=== PATIENT | male | born 1980 | race Caucasian/White ===

== ENCOUNTER → 2016-09-15 | Outpatient (CLI) | payer OTHER ==
[2016-09-15 20:21] LABS: ALBUMIN 3.8 GM/DL (3.2-5.2); ANION GAP 10 MEQ/L (8-16); BLOOD UREA NITROGEN 19 MG/DL (7-18); CALCIUM LEVEL 8.9 MG/DL (8.5-10.1); CARBON DIOXIDE LEVEL 26 MEQ/L (21-32); CHLORIDE LEVEL 108 MEQ/L (98-107); CREATININE FOR GFR 0.86 MG/DL (0.70-1.30); GLOMERULAR FILTRATION RATE > 60.0 (>60); GLUCOSE, FASTING 93 MG/DL (70-105); PHOSPHORUS LEVEL 3.3 MG/DL (2.5-4.9); POTASSIUM SERUM 4.2 MEQ/L (3.5-5.1); SODIUM LEVEL 144 MEQ/L (136-145); URIC ACID 7.1 MG/DL (3.5-7.2)
== END ==
LOC: M WUC 18:18
PROVIDERS: ATTEND Physician Assistant
DX: M10.00 Idiopathic gout, unspecified site (principal)

== ENCOUNTER 2019-06-02 02:44 | Emergency (ER) | payer OTHER ==
[~2019-06-02] VITALS: Ht 188 cm; Wt 147.7 kg
[2019-06-02 03:09] LABS: BASO # 0.1 10^3/uL (0.0-0.2); BASO % 0.7 % (0.0-1.0); EOS # 0.3 10^3/uL (0.0-0.5); EOS % 2.7 % (0.0-3.0); HEMATOCRIT 47.6 % (42.0-52.0); HEMOGLOBIN 15.6 g/dl (13.5-17.5); LYMPH # 3.5 10^3/uL (1.5-5.0); LYMPH % 33.7 % (24.0-44.0); MEAN CORPUSCULAR HEMOGLOBIN 28.3 pg (27.0-33.0); MEAN CORPUSCULAR HGB CONC 32.8 g/dl (32.0-36.5); MEAN CORPUSCULAR VOLUME 86.2 fl (80.0-96.0); MONO # 0.9 10^3/uL (0.0-0.8); MONO % 8.5 % (0.0-5.0); NEUTROPHILS # 5.7 10^3/uL (1.5-8.5); NEUTROPHILS % 54.1 % (36.0-66.0); PLATELET COUNT, AUTOMATED 292 10^3/uL (150-450); RED BLOOD COUNT 5.52 10^6/uL (4.30-6.10); WHITE BLOOD COUNT 10.4 10^3/uL (4.0-10.0)
[2019-06-02 03:37] LABS: PROTHROMBIN TIME 12.9 SECONDS (11.8-14.0)
[2019-06-02 03:40] LABS: ALBUMIN 4.1 GM/DL (3.2-5.2); ALT/SGPT 58 U/L (12-78); BILIRUBIN,DIRECT 0.1 MG/DL (0.0-0.2); BILIRUBIN,TOTAL 0.3 MG/DL (0.2-1.0); BLOOD UREA NITROGEN 17 MG/DL (7-18); CALCIUM LEVEL 8.9 MG/DL (8.5-10.1); CARBON DIOXIDE LEVEL 28 MEQ/L (21-32); CHLORIDE LEVEL 106 MEQ/L (98-107); CK-MB VALUE MASS 1.3 NG/ML (<3.6); CPK CREATINE PHOSPHOKINASE 138 U/L (39-308); GLOMERULAR FILTRATION RATE > 60.0 (>60); GLUCOSE, FASTING 102 MG/DL (70-100); LIPASE 74 U/L (73-393); MB/CK RELATIVE INDEX 0.94 (< OR =4); POTASSIUM SERUM 3.9 MEQ/L (3.5-5.1); SODIUM LEVEL 140 MEQ/L (136-145); TROPONIN I < 0.02 NG/ML (< 0.10)
[2019-06-02] MEDS ORDERED: NAPR-837 PO (04:11)
[2019-06-02 04:15] VITALS: BP 145/83
[2019-06-02] MEDS ORDERED: NAPROXEN 250 MG TAB PO ONE (04:15)
--- NOTE | 2019-06-02 06:30 | REP ---
Clinical: Chest pain . Comparison: None . Findings: The mediastinum and cardiac silhouette are stable and within normal limits for portable technique. The lung sierra are clear without acute consolidation, effusion, or pneumothorax. Skeletal structures are intact. Impression: No acute cardiopulmonary process appreciated. Electronically Signed by Shaw Nazario MD 06/02/2019 06:21 A
--- NOTE | 2019-06-03 00:47 | ECGEPIP ---
[facility] - ED Test Date: 2019-06-02 Pat Name: CASSANDRA SALGUERO Department: Room: - Gender: Male Pricing Coordinator: SCARLETT : 1980 Requested By: CASSANDRA Moore Order Number: [id number] Reading MD: Ranjeet Toussaint Measurements Intervals [place] Rate: 82 P: 66 CA: 198 QRS: 86 QRSD: 93 T: 52 QT: 367 QTc: 430 Interpretive Statements SINUS RHYTHM POSSIBLE INFERIOR MYOCARDIAL INFARCTION, PROBABLY OLD NO PRIORS FOR COMPARISON Electronically Signed on 06-03-2019 0:47:23 EDT by Ranjeet Toussaint
== END 2019-06-02 04:36 | disposition home or self-care (01) ==
LOC: M ED 02:44
DX: R07.89 Other chest pain (principal)

== ENCOUNTER → 2020-05-20 | Outpatient (CLI) | payer OTHER ==
[~2020-05-20] MED LIST: NAPR-837 PO; PROHANCE 279.3MG/ML 15ML VIAL As Ordered ONE; PROHANCE 279.3MG/ML 5ML VIAL As Ordered ONE
--- NOTE | 2020-05-20 11:30 | REP ---
INDICATION: OA RIGHT KNEE,EVAL RADIAL OPAQUE IMAGE,INTER DERAN. COMPARISON: None. TECHNIQUE: Multiple sequences obtained in the axial, coronal and sagittal planes. T1 fat-sat images obtained prior to and following the intravenous administration of 20 mL ProHance. FINDINGS: Menisci: There is a complex tear of the posterior horn of the medial meniscus. Cruciate ligaments: Intact. Collateral ligaments: Intact. Extensor mechanism/patellar retinacula: Intact. Cartilage: There is mild global chondromalacia with no focal osteochondral defect. Bone marrow: Moderate ill-defined marrow edema and enhancement is seen in the medial femoral condyle. This may represent a bone bruise. Joint fluid: There is a small joint effusion. Popliteal region: There is a thin Alcantar's cyst in the medial popliteal fossa, maximum thickness is approximately 6 mm, craniocaudal length is 3.6 cm. IMPRESSION: Complex tear posterior horn medial meniscus. Mild global chondromalacia. Moderate ill-defined marrow edema and enhancement in the medial femoral condyle likely representing a bone bruise. No other osseous abnormality identified. Small joint effusion with thin Alcantar's cyst in the medial popliteal fossa. <Electronically signed by Nick Parnell > 05/20/20 1126
== END ==
LOC: M RAD 08:55
PROVIDERS: ATTEND Physician Assistant Surgical
DX: S83.231A Complex tear of medial meniscus, current injury, right knee, initial encounter (principal); M71.21 Synovial cyst of popliteal space [Baker], right knee; M17.11 Unilateral primary osteoarthritis, right knee; X58.XXXA Exposure to other specified factors, initial encounter; Y92.9 Unspecified place or not applicable; Y99.9 Unspecified external cause status
CPT/HCPCS: 73723; A9576